=== PATIENT | male | born 1970 | race African-American/Black ===

== ENCOUNTER 2022-04-27 01:58 | Emergency (ER) | payer SELFPAY ==
[~2022-04-27] VITALS: Ht 185.4 cm; Wt 104.0 kg
[2022-04-27 02:08] VITALS: BP 144/90
== END 2022-04-27 09:34 | disposition left against medical advice (07) ==
LOC: ER 01:58
DX: Z53.21 Procedure and treatment not carried out due to patient leaving prior to being seen by health care provider (principal)

== ENCOUNTER 2022-04-28 19:43 | Inpatient (IN) | payer SELFPAY ==
[~2022-04-28] VITALS: Ht 185.4 cm; Wt 103.4 kg
[2022-04-29] MEDS ORDERED: SODIUM CHLORIDE 0.9% 1,000 ML IV ONE (03:45)
[2022-04-29 04:08] LABS: BASOPHILS % 0.9 % (0.0-2.0); EOSINOPHILS % 2.1 % (0.0-5.0); HEMATOCRIT. 36.8 % (42.0-52.0); HEMOGLOBIN. 12.1 g/dL (14.0-18.0); LYMPHOCYTES % 44.7 % (20.0-50.0); MEAN CORPUSCULAR HEMOGLOBIN 22.2 pg (28.0-32.0); MEAN CORPUSCULAR VOLUME 67.7 fL (80.0-94.0); MEAN PLATELET VOLUME 7.6 fl (7.4-10.4); MONOCYTES % 9.7 % (2.0-8.0); NEUTROPHILS % 42.6 % (40.0-76.0); PLATELET 301 x1000/uL (130-400); RED BLOOD CELL COUNT 5.43 mill/uL (4.7-6.1)
[2022-04-29 04:23] LABS: CHLORIDE 106 mEq/L (98-107)
[2022-04-29] MEDS ORDERED: IOHEXOL-300 100 ML BOTTLE ONE (06:10)
[2022-04-29 07:09] LABS: PLATELET ESTIMATE NORMAL
[2022-04-29] MEDS ORDERED: IPRATROPIUM/ALBUTEROL 0.5-3(2.5)MG/3ML NEB NEB PRN (09:30)
[2022-04-29] MEDS ORDERED: MAGNESIUM/ALUMINUM HYDROXIDE/SIMETHICONE 30ML UDC PO PRN (09:30)
[2022-04-29] MEDS ORDERED: PANTOPRAZOLE SODIUM 40 MG/VIAL IV SCH (09:30)
[2022-04-29] MEDS ORDERED: ACETAMINOPHEN 325MG TABLET PO PRN ×2 (09:30)
[2022-04-29] MEDS ORDERED: NA PHOS,M-B/NA PHOS,DI-BA ENEMA 118ML PR PRN (09:30)
[2022-04-29] MEDS ORDERED: DOCUSATE SODIUM 100MG CAPSULE PO PRN (09:30)
[2022-04-29] MEDS ORDERED: NITROGLYCERIN 0.4MG TABLET SL SL PRN (09:30)
[2022-04-29] MEDS ORDERED: KETOROLAC 30MG/ML VIAL IV PRN (09:30)
[2022-04-29] MEDS ORDERED: CLONIDINE 0.1MG TABLET PO PRN (09:30)
[2022-04-29] MEDS ORDERED: GUAIFENESIN 200MG/10ML SUGAR FREE UDC PO PRN (09:30)
[2022-04-29] MEDS ORDERED: ONDANSETRON HCL 4MG/2ML INJ IV PRN (09:30)
[2022-04-29 13:10] LABS: HEMATOCRIT 38.8 % (42.0-52.0); HEMOGLOBIN 12.5 g/dL (14.0-18.0)
[2022-04-29 13:23] LABS: TOTAL IRON BINDING CAPACITY 302 ug/dL (250-450)
[2022-04-29 13:32] LABS: ETHANOL BLOOD < 10 mg/dL; HDL CHOLESTEROL 40 mg/dL (40-59); LDL CHOLESTEROL 150 mg/dL (5-100); T4 FREE 1.11 ng/dL (0.76-1.46); TOTAL IRON BINDING CAPACITY 289 ug/dL (250-450)
[2022-04-29 14:47] LABS: VITAMIN B12 SERUM 335 pg/mL (211-911)
[2022-04-29 14:48] LABS: VITAMIN B12 SERUM 344 pg/mL (211-911)
[2022-04-29 15:03] LABS: FERRITIN 131 ng/mL (22-322)
[2022-04-29] MEDS: SORBITOL 70% SOLN 30ML PO SCH ×2 (16:00→20:12)
[2022-04-29 19:51] LABS: CLARITY URINE CLEAR (CLEAR); COLOR URINE YELLOW (YELLOW); KETONES URINE NEGATIVE (NEGATIVE); LEUKOCYTE ESTERASE URINE NEGATIVE (NEGATIVE); NITRITE URINE NEGATIVE (NEGATIVE); OCCULT BLOOD URINE TRACE (NEGATIVE); PROTEIN URINE NEGATIVE (NEGATIVE); UROBILINOGEN URINE 0.2 E.U./dL (0.2-1.0)
[2022-04-29 20:22] LABS: *AMPHETAMINES SCREEN URINE NEGATIVE (NEGATIVE); *BARBITURATES SCREEN URINE NEGATIVE (NEGATIVE); *BENZODIAZEPINES SCREEN URINE NEGATIVE (NEGATIVE); *COCAINE SCREEN URINE NEGATIVE (NEGATIVE); CANNABINOID URINE SCREEN PRESUMTIVE POSITIVE (NEGATIVE); METHADONE URINE SCREEN NEGATIVE (NEGATIVE); OPIATES URINE SCREEN NEGATIVE (NEGATIVE); PHENCYCLIDINE URINE SCREEN NEGATIVE (NEGATIVE)
[2022-04-29] MEDS ORDERED: ZOLPIDEM TARTRATE 5MG TABLET PO PRN (21:00)
[2022-04-29] MEDS: PANTOPRAZOLE SODIUM 40 MG/VIAL IV SCH (21:25)
[2022-04-30 01:12] LABS: HEMATOCRIT 39.4 % (42.0-52.0); HEMOGLOBIN 12.8 g/dL (14.0-18.0)
[2022-04-30 06:07] LABS: BASOPHILS % 0.4 % (0.0-2.0); HEMATOCRIT. 40.1 % (42.0-52.0); HEMOGLOBIN. 13.1 g/dL (14.0-18.0); LYMPHOCYTES % 46.4 % (20.0-50.0); MEAN CORPUSCULAR HEMOGLOBIN 22.1 pg (28.0-32.0); MEAN CORPUSCULAR VOLUME 67.9 fL (80.0-94.0); MEAN PLATELET VOLUME 7.8 fl (7.4-10.4); MONOCYTES % 8.5 % (2.0-8.0); NEUTROPHILS % 41.7 % (40.0-76.0); PLATELET 302 x1000/uL (130-400); RED BLOOD CELL COUNT 5.91 mill/uL (4.7-6.1)
[2022-04-30 06:15] LABS: CHLORIDE 108 mEq/L (98-107)
[2022-04-30 06:23] LABS: PHOSPHORUS 3.7 mg/dL (2.5-4.9)
[2022-04-30] MEDS: PANTOPRAZOLE SODIUM 40 MG/VIAL IV SCH (08:39)
[2022-04-30] MEDS: METOCLOPRAMIDE HCL 10MG/2ML VIAL IV SCH ×2 (08:40→12:00)
[2022-04-30 11:00] VITALS: BP 138/87
[2022-04-30 12:00] VITALS: BP 138/87
[2022-04-30] MEDS ORDERED: PROPOFOL 200MG/20ML VIAL IV ONE ×2 (13:08→13:38)
[2022-04-30] MEDS ORDERED: LIDOCAINE HCL 1% 10 MG/ML 10ML VIAL ONE (13:09)
[2022-04-30] MEDS ORDERED: MIDAZOLAM HCL 2 MG/2 ML VIAL ONE ×2 (13:09→13:25)
[2022-04-30] MEDS ORDERED: PHENYLEPHRINE HCL 10 MG/ML 1ML (IV VIAL) IV ONE (13:31)
[2022-04-30] MEDS ORDERED: KETOROLAC 15MG/ML VIAL IV PRN (16:42)
[2022-04-30 17:55] LABS: HEMATOCRIT 41.9 % (42.0-52.0); HEMOGLOBIN 13.5 g/dL (14.0-18.0)
== END 2022-04-30 19:54 | disposition home or self-care (01) | DRG 244 ==
LOC: ER 19:43 → MICUSO 04-29 08:34 → 6EST 04-30 11:46
PROVIDERS: ADMIT Internal Medicine; ATTEND Internal Medicine
PROC: 0DJD8ZZ Inspection of Lower Intestinal Tract, Via Natural or Artificial Opening Endoscopic (ICD-10-PCS; principal; 2022-04-30)
DX: K57.91 Diverticulosis of intestine, part unspecified, without perforation or abscess with bleeding (principal); D62 Acute posthemorrhagic anemia; K64.8 Other hemorrhoids; D50.9 Iron deficiency anemia, unspecified; F12.90 Cannabis use, unspecified, uncomplicated; M71.21 Synovial cyst of popliteal space [Baker], right knee; Z20.822 Contact with and (suspected) exposure to COVID-19; R73.03 Prediabetes
CPT/HCPCS: 36415; 74177; 80053; 80061; 80305; 80320; 81003; 82607; 82728; 82746; 83036; 83540; 83550; 83605; 83735; 84100; 84439; 84443; 85014; 85018; 85025; 86850; 86900; 87426; 93970; 99285; C9113; J2250; J2370; J2704; J2765; J3490; J7030; Q9967; G0480